=== PATIENT | male | born 1955 | race Caucasian/White ===

== ENCOUNTER → 2017-06-07 | Outpatient (CLI) | payer BC ==
[~2017-06-07] MED LIST: ASPI-999 PO; ATOR20TA66 PO; Allegra; CLOP75TA28 PO; CLOP75TA69 PO; FEXO-14 PO; FEXO180T84 PO; METO-351 PO; METO-395 PO; PANT40TA2 PO; REGADENOSON 0.4 MG/5 ML SYR (LEXISCAN) IV ONE; TRAM-42 PO
[2017-06-07] MEDS: CATHETER FLUSH 10 ML SYR IV PRN ×2 (11:20→12:22)
[2017-06-07 12:19] VITALS: BP 177/91
--- NOTE | 2017-06-08 16:55 | STRESS TEST ---
DATE OF SERVICE: 06/07/2017 RESTING AND POST REGADENOSON TECHNETIUM-99M TETROFOSMIN SPECT CT IMAGING ORDERING PHYSICIAN: Dr. Garner. CLINICAL DIAGNOSIS: Coronary artery disease. Baseline images were carried out after injection of 10.47 mCi of technetium-99m Tetrofosmin. This was followed by 0.4 mg regadenoson and 30 mCi of technetium-99m Tetrofosmin for stress imaging. The electrocardiogram showed sinus rhythm at baseline. It did not change significantly with the regadenoson infusion. The patient noted mild shortness of breath following regadenoson technetium, which resolved in a few minutes. Review of images at rest and following stress does not indicate any distinct perfusion defects consistent with significant myocardial ischemia or infarction. Gating could not be carried out for the study. TID is absent (1). CONCLUSIONS: 1. No evidence of significant myocardial ischemia or infarction on this study. 2. Gating could not be carried out on this study. Job ID: [id number] DocumentID: [id number] Dictated Date: 06/08/2017 15:22:13 Batch Plant Operator Date: 06/08/2017 16:54:40 Dictated By: JANET GARNER MD, MA, FACP, FACC, MTDD
== END ==
LOC: CARD 10:50
PROVIDERS: ATTEND Internal Medicine Cardiovascular Disease
DX: I25.10 Atherosclerotic heart disease of native coronary artery without angina pectoris (principal); I10 Essential (primary) hypertension; E66.9 Obesity, unspecified
CPT/HCPCS: 78452; 93017

== ENCOUNTER → 2018-01-25 | Outpatient (CLI) | payer BC ==
[~2018-01-25] MED LIST changes: -REGADENOSON 0.4 MG/5 ML SYR (LEXISCAN) IV ONE
== END ==
LOC: RAD 12:57
PROVIDERS: ATTEND Internal Medicine Cardiovascular Disease
DX: I25.10 Atherosclerotic heart disease of native coronary artery without angina pectoris (principal); I65.23 Occlusion and stenosis of bilateral carotid arteries; E66.9 Obesity, unspecified; I10 Essential (primary) hypertension; I70.211 Atherosclerosis of native arteries of extremities with intermittent claudication, right leg; G25.81 Restless legs syndrome
CPT/HCPCS: 93923

== ENCOUNTER 2018-03-22 19:36 | Outpatient (CLI) | payer BC | END 2018-03-23 05:41 | disposition home or self-care (01) | LOC: SLEEP 19:36 | PROVIDERS: ATTEND Nurse Practitioner Family | DX: G47.10 Hypersomnia, unspecified (principal); G47.61 Periodic limb movement disorder; I10 Essential (primary) hypertension | CPT/HCPCS: 95810 ==

== ENCOUNTER → 2019-12-26 | Outpatient (CLI) | payer BC ==
[~2019-12-26] VITALS: Ht 182 cm; Wt 114.0 kg
[~2019-12-26] MED LIST changes: -METO-395 PO; +MTP100TCR PO; +REGADENOSON 0.4 MG/5 ML SYR (LEXISCAN) IV ONE
[2019-12-26] MEDS: CATHETER FLUSH 10 ML SYR IV PRN ×2 (07:35→08:59)
[2019-12-26 08:54] VITALS: BP 161/86
--- NOTE | 2019-12-26 20:27 | STRESS TEST ---
DATE OF SERVICE: 12/26/2019 RESTING AND POST REGADENOSON TECHNETIUM-99M TETROFOSMIN SPECT CT IMAGING ORDERING PHYSICIAN: Vianey Lees APRN OTHER PHYSICIAN: Dr. Lee. CLINICAL DIAGNOSIS: Shortness of breath. Baseline images were carried out after injection of 10.45 mCi of technetium-99m Tetrofosmin. This was followed by 0.4 mg regadenoson and 30.3 mCi of technetium-99m Tetrofosmin for stress imaging. The electrocardiogram showed sinus rhythm at baseline. It did not change significantly with regadenoson infusion. The patient tolerated the procedure well. Review of images at rest and following stress does not indicate any perfusion defects consistent with significant myocardial ischemia or infarction. Gated images show normal global left ventricular systolic function with normal regional wall motion. Left ventricular ejection fraction is calculated to be 60%. Left ventricular end diastolic volume is 90 mL. TID is absent (1.03). CONCLUSIONS: 1. No evidence of any significant myocardial ischemia or infarction on this study. 2. Normal regional wall motion. 3. Normal global left ventricular systolic function with a calculated ejection fraction of 60%. Job ID: [id number] DocumentID: [id number] Dictated Date: 12/26/2019 13:48:38 Sexual Health Physician Date: 12/26/2019 20:26:33 Dictated By: JANET LEE MD, MA, FACP, FACC, MTDD
== END ==
LOC: CARD 07:30
PROVIDERS: ATTEND Nurse Practitioner Family
DX: I25.10 Atherosclerotic heart disease of native coronary artery without angina pectoris (principal); I65.23 Occlusion and stenosis of bilateral carotid arteries; I10 Essential (primary) hypertension; G47.33 Obstructive sleep apnea (adult) (pediatric)
CPT/HCPCS: 78452; 93017; A9502

== ENCOUNTER → 2019-12-28 | Outpatient (CLI) | payer BC ==
[~2019-12-28] MED LIST changes: -REGADENOSON 0.4 MG/5 ML SYR (LEXISCAN) IV ONE
== END ==
LOC: CARD 08:02
PROVIDERS: ATTEND Nurse Practitioner Family
DX: I25.10 Atherosclerotic heart disease of native coronary artery without angina pectoris (principal); I65.29 Occlusion and stenosis of unspecified carotid artery; I10 Essential (primary) hypertension; G47.33 Obstructive sleep apnea (adult) (pediatric)
CPT/HCPCS: 93306

== ENCOUNTER 2020-11-07 06:31 | Outpatient (CLI) | payer BC ==
[~2020-11-07] VITALS: Ht 183 cm; Wt 109.0 kg
== END 2020-11-11 14:21 ==
LOC: PREOP 06:31
PROVIDERS: ATTEND Internal Medicine
DX: Z01.818 Encounter for other preprocedural examination (principal)

== ENCOUNTER 2020-11-15 07:52 | Day surgery (SDC) | payer BC ==
--- NOTE | 2020-11-07 06:06 | HISTORY AND PHYSICAL ---
DATE OF SERVICE: COLONOSCOPY H AND P HISTORY OF PRESENT ILLNESS: The patient is a 65-year-old white male seen in the office for wellness evaluation on 10/31/2020. Positive family history for colon cancer, index case being a sibling diagnosed in the 40s or early 50s. It has been 5 and half years since his last colonoscopy. He has noted no bowel habit change. Denies bright red blood per rectum, except for some radicular sounding low back pain, has been doing well. PAST MEDICAL HISTORY: Significant for known coronary artery disease, status post right coronary artery stent placement in 2014. He has obstructive sleep apnea and hypertension as well as hyperlipidemia. He has had no chest pain. Denies orthopnea, PND or pedal edema. There have been no changes in family history. Most notable for a sister diagnosed with colon cancer in her late 40s. PHYSICAL EXAMINATION: GENERAL: Reveals a white male, appeared to be in no acute distress. VITAL SIGNS: Weight stable at 251.2 pounds. Blood pressure 140/70. HEENT: Unremarkable. Sclerae nonicteric. CHEST: Clear. CARDIOVASCULAR: Reveals a regular rate and rhythm without murmur, S3 or S4. ABDOMEN: Soft, supple without mass, organomegaly or tenderness. RECTAL: Deferred at the time of colonoscopy. EXTREMITIES: Reveal no cyanosis, clubbing or edema. SKIN: Evaluation did reveal a partially ulcerated lesion with pearly borders, dime size on the right thigh. ASSESSMENT AND PLAN: 1. Stable wellness evaluation. Did discussed the importance of try increase physical activity, portion control and weight loss. 2. The patient is being set up for a screening colonoscopy higher than average risk due to family history of colon cancer in a sister diagnosed in her late 40s. 3. Lesion consistent with either basal or squamous cell right thigh. We will have him return next Wednesday for excision. 4. Combination radicular as well as likely mechanical low back pain. The patient referred for formal physical therapy. We will see him back in 6 months. Job ID: [id number] DocumentID: [id number] Dictated Date: 10/31/2020 16:55:36 Debt And Budget Counselor Date: 10/31/2020 17:33:58 Dictated By: DIANA VELASQUEZ MD
[~2020-11-15] VITALS: Ht 183 cm; Wt 109.0 kg
[2020-11-15] VITALS (7 sets, daily range): BP systolic 148–169; BP diastolic 78–92
[2020-11-15] MEDS ORDERED: LACTATED RINGERS 1,000 ML IV STA (08:00)
[2020-11-15] MEDS ORDERED: LIDOCAINE JELLY 2% 6 ML SYRINGE MM PRN (08:00)
[2020-11-15] MEDS ORDERED: LACTATED RINGERS 1,000 ML IV ONE (08:07)
--- NOTE | 2020-11-15 08:39 | Pre-Op Note & Conscious Sedat ---
Pre-Operative Progress Note H&P Reviewed The H&P was reviewed, patient examined and no changes noted. Date H&P Reviewed: Nov 15, 2020 Time H&P Reviewed: 08:39 Conscious Sedation Pre-Proced ASA Score 2 For ASA 3 and 4: Consider anesthesia and medical clearance. Also, for patients with a history of failed moderate sedation consider anesthesia. Airway Lungs Heart ASA score ASA 1: a normal healthy patient ASA 2: a patient with a mild systemic disease (mid diabetes, controlled hypertension, obesity ASA 3: a patient with a severe systemic disease that limits activity (angina, COPD, prior Myocardial infarction) ASA 4: a patient with an incapacitating disease that is a constant threat to life (CHF, renal failure) ASA 5: a moribund patient not expected to survive 24 hrs. (ruptured aneurysm) ASA 6: a declared brain- patient whose organs are being harvested. For emergent operations, add the letter E after the classification Mallampati Classification Grade 3 Sedation Plan Analgesia, Amnesia, Plan communicated to team members, Discussed options with patient/fam, Discussed risks with patient/fam The patient is an appropriate candidate to undergo the planned procedure, sedation, and anesthesia. The patient immediately re-assessed prior to indication. DIANA VELASQUEZ MD Nov 15, 2020 08:39
[2020-11-15] MEDS ORDERED: MIDAZOLAM 2 MG/2 ML (VERSED) VIAL ONE (09:11)
[2020-11-15] MEDS ORDERED: PROPOFOL INJECTION 50 ML IV ONE (09:11)
--- NOTE | 2020-11-15 10:15 | Anesthesia-General Post-Op ---
MAC Patient Condition Mental Status/LOC: Same as Preop Cardiovascular: Satisfactory Nausea/Vomiting: Absent Respiratory: Satisfactory Pain: Controlled Complications: Absent Post Op Complications Complications None Follow Up Care/Instructions Patient Instructions None needed. Anesthesiology Discharge Order Discharge Order Patient is doing well, no complaints, stable vital signs, no apparent adverse anesthesia problems. No complications reported per nursing. TERRY BAPTISTE CRNA Nov 15, 2020 10:15
--- NOTE | 2020-11-15 16:33 | OPERATIVE REPORT ---
DATE OF SERVICE: COLONOSCOPY SUMMARY I am his primary care physician. INDICATION FOR THE PROCEDURE: Screening colonoscopy, family history for colon cancer. DESCRIPTION OF PROCEDURE: The patient was placed in the left lateral decubitus position. Prior to undergoing colonoscopy, digital rectal evaluation was performed. Anal sphincter tone was normal and the perianal reflexes intact. Prostate is mildly enlarged, anodular on digital inspection. No abnormalities were noted on inspection of anal canal or distal rectal vault. The colonoscope was then inserted into the rectum and under direct visualization advanced to cecum. The cecum was identified by identification of ileocecal valve and cecal strap. Photographic documentation was obtained. Careful inspection was made as colonoscope was withdrawn. The quality of prep was good. FINDINGS: No evidence for internal or external hemorrhoids. Present at the rectosigmoid junction was a diminutive hyperplastic-appearing polyp. It was biopsied and removed in its entirety via cold forceps. Several small sigmoid diverticulum were present without evidence for diverticulitis. No other sigmoid colonic abnormalities were appreciated. The descending colon was unremarkable. Present in the distal transverse colon was a 3 mm sessile polyp. It was biopsied and removed in its entirety with cold forceps with no significant blood loss. The remainder of the transverse colon was unremarkable. Present at the splenic flexure was another diminutive 3 mm polyp. It was biopsied and removed via cold forceps as well with minimal blood loss. The remainder of the transverse colon, hepatic flexure, ascending colon and cecum were unremarkable. ASSESSMENT: Three diminutive sessile polyps were removed today from the rectosigmoid junction. The splenic flexure and distal transverse colon with minimal blood loss. The patient was advised to abstain from aspirin and Plavix over the weekend and then resume. Mild diverticular disease confined to the sigmoid colon was present and digital evaluation of the prostate was compatible with mild benign prostatic hypertrophy. Considering family history will be advocating repeat screening colonoscopy in 5 years as long as there are no surprise on histopathology report. Job ID: [id number] DocumentID: [id number] Dictated Date: 11/15/2020 10:22:02 Diesel Engine Fitter Date: 11/15/2020 16:33:04 Dictated By: DIANA VELASQUEZ MD
== END 2020-11-15 10:25 | disposition home or self-care (01) ==
LOC: ENDO 07:52
PROVIDERS: ATTEND Internal Medicine
DX: Z12.11 Encounter for screening for malignant neoplasm of colon (principal); D12.3 Benign neoplasm of transverse colon; K57.30 Diverticulosis of large intestine without perforation or abscess without bleeding; N40.0 Benign prostatic hyperplasia without lower urinary tract symptoms; I10 Essential (primary) hypertension; I25.10 Atherosclerotic heart disease of native coronary artery without angina pectoris; G47.33 Obstructive sleep apnea (adult) (pediatric); E78.5 Hyperlipidemia, unspecified; L98.8 Other specified disorders of the skin and subcutaneous tissue; M54.5 Low back pain; Z80.0 Family history of malignant neoplasm of digestive organs; Z79.899 Other long term (current) drug therapy; Z79.82 Long term (current) use of aspirin; Z79.02 Long term (current) use of antithrombotics/antiplatelets; Z87.891 Personal history of nicotine dependence
CPT/HCPCS: 88305

== ENCOUNTER → 2021-07-29 | Outpatient (CLI) | payer BC | LOC: CARD 15:00 | PROVIDERS: ATTEND Nurse Practitioner Family | DX: R06.00 Dyspnea, unspecified (principal); R60.0 Localized edema | CPT/HCPCS: 93306 ==

== ENCOUNTER 2021-08-19 08:00 | Day surgery (SDC) | payer BC ==
[~2021-08-19] VITALS: Ht 182.9 cm; Wt 116.8 kg
[2021-08-19] VITALS (8 sets, daily range): BP systolic 113–164; BP diastolic 52–83
[2021-08-19 07:25] LABS: HEMATOCRIT 44 % (40-54); MEAN CORPUSCULAR HEMOGLOBIN 29 pg (25-34); MEAN CORPUSCULAR HGB CONC 32 g/dL (32-36); MEAN CORPUSCULAR VOLUME 91 fL (80-99); MEAN PLATELET VOLUME 10.1 fL (9.0-12.2); PLATELET COUNT 189 10^3/uL (130-400); WHITE BLOOD COUNT 6.8 10^3/uL (4.3-11.0)
[2021-08-19 07:35] LABS: PROTHROMBIN TIME PATIENT 13.8 SEC (12.2-14.7)
[2021-08-19 07:37] LABS: ALBUMIN 4.1 GM/DL (3.2-4.5); BILIRUBIN,TOTAL 0.7 MG/DL (0.1-1.0); CREATININE SERUM 1.09 MG/DL (0.60-1.30); TOTAL PROTEIN 7.7 GM/DL (6.4-8.2)
[~2021-08-19 08:00] MED LIST changes: +ATOR40TA70 PO; +CAND8TAB14 PO; +HEParin (CATH LAB) 2,000 ML IV ONE; +HYDR25TA4 PO; +LIDOCAINE 1% INJ 20 ML VIAL ONE; +MIDAZOLAM 5 MG/5 ML (VERSED) VIAL ONE; +NS IV 1000 ML 1,000 ML IV SCH; +NS IV 1000 ML 1,000 ML ONE; +fentaNYL INJ 100 MCG/2 ML AMP ONE
--- NOTE | 2021-08-19 09:45 | Cardiac Procedure Note-CS/ASA ---
Pre-Procedure Note Pre-Op Procedure Note H&P Reviewed The H&P was reviewed, patient examined and no changes noted. Date H&P Reviewed: Aug 19, 2021 Time H&P Reviewed: 08:50 Conscious Sedation Pre-Proced Time 08:50 ASA Score 3 For ASA 3 and 4: Consider anesthesia and medical clearance. Also, for patients with a history of failed moderate sedation consider anesthesia. Airway Lungs Heart ASA score ASA 1: a normal healthy patient ASA 2: a patient with a mild systemic disease (mid diabetes, controlled hypertension, obesity ASA 3: a patient with a severe systemic disease that limits activity (angina, COPD, prior Myocardial infarction) ASA 4: a patient with an incapacitating disease that is a constant threat to life (CHF, renal failure) ASA 5: a moribund patient not expected to survive 24 hrs. (ruptured aneurysm) ASA 6: a declared brain- patient whose organs are being harvested. For emergent operations, add the letter E after the classification Mallampati Classification Grade 2 Sedation Plan Analgesia, Amnesia, Plan communicated to team members, Discussed options with patient/fam, Discussed risks with patient/fam The patient is an appropriate candidate to undergo the planned procedure, sedation, and anesthesia. The patient immediately re-assessed prior to indication. JANET LEE MD FACP FAC [facility] Aug 19, 2021 09:45
--- NOTE | 2021-08-19 09:51 | Discharge Inst-Cardiology ---
Discharge Inst-Cardiac Discharge Medications Continued Medications: Aspirin (Aspirin) 81 Mg Tab.chew 81 MG PO DAILY, TAB Atorvastatin Calcium (Atorvastatin Calcium) 40 Mg Tablet 40 MG PO HS, TAB Candesartan Cilexetil (Candesartan Cilexetil) 8 Mg Tablet 8 MG PO DAILY, TAB Fexofenadine HCl (Mariela Allergy) 180 Mg Tablet 180 MG PO DAILY Hydrochlorothiazide (Hydrochlorothiazide) 25 Mg Tablet 25 MG PO DAILY, TAB Metoprolol Succinate (Metoprolol Succinate) 100 Mg Tab.er.24h 100 MG PO DAILY, TAB Pantoprazole Sodium (Protonix) 40 Mg Tablet.dr 40 MG PO DAILY, TAB JANET LEE MD [facility] Aug 19, 2021 09:51
--- NOTE | 2021-08-19 09:51 | Discharge Inst-Post CATH ---
Discharge Inst-CATH/EP Post Cardiac Cath/EP D/C Inst Follow Up/Plan F/u with Dr Garner in 2 weeks ACTIVITY * Go Home directly and rest. * Limit activity of the leg (or wrist if it was used) for 7 days including aerobics, swimming, jogging, bicycling, etc. * Restrict stair-climbing for 7 days if possible, if not, climb up with your no n-cath leg, then bring together on the same step. * Avoid lifting, pushing, pulling or excessive movement of the affected ext remity for 7 days. * Customary sexual activity may be resumed after 2 days-use caution not to use a position that strains or causes pain to the affected extremity. * No driving for 24 hours. * NO SMOKING. * Avoid straining for bowel movements for 7 days. * Gentle walking on level ground is allowed. * Returning to work will depend on the type of procedure and the results. Your doctor will discuss this with you. CALL YOUR DOCTOR FOR ANY OF THE FOLLOWING: *If bleeding from the puncture site occurs- Apply gentle pressure to site with clean cloth and call your doctor or EMS. * If a knot or lump forms under the skin, increases in size, or causes pain. * If bruising appears to be worsening or moving further down your leg instead of disappearing. * Temperature above 101 F. CARE OF YOUR GROIN INCISION; * Bruising or purple discoloration of the skin near the puncture site is common. * You may shower only, no bathtub bathing for 5 days. Be careful to avoid slipping as your leg may feel stiff. * If a closure device was used on your femoral artery, please see the attached guide regarding care of the device and your leg. * Leave dressing on FOR 24 hours. CARE OF YOUR WRIST INCISION; * Bruising or purple discoloration of the skin near the puncture site is common. * You may shower. * DO NOT submerge wrist. * Leave dressing on FOR 24 hours. JANET GARNER MD [facility] Aug 19, 2021 09:51
[2021-08-19] MEDS ORDERED: PATIENT MAY USE OWN MEDS, ALL PO SCH (10:00)
[2021-08-19] MEDS ORDERED: NS IV 1000 ML 1,000 ML IV SCH (10:00)
--- NOTE | 2021-08-19 13:09 | CARDIAC CATHETERIZATION ---
DATE OF SERVICE: 08/19/2021 CARDIAC CATHETERIZATION REPORT HISTORY OF PRESENT ILLNESS: The patient is a 66-year-old man with a known coronary artery disease, who has had a stenting of the right coronary and balloon angioplasty of the distal posterior descending branch of the right coronary in 2014. Lately, he has had recurrent symptoms that are suggestive of recurrent angina. Cardiac catheterization was carried out today after having obtained an informed consent. PROCEDURE IN DETAIL: He was brought to the cardiac catheterization laboratory in a fasting state. Right groin was prepared and draped in the usual sterile fashion. Lidocaine 1% was used for local anesthesia. Modified Seldinger technique was used to advance a 5-Andorran sheath in the right femoral artery. Angiography of the right femoral artery was carried out through the sheath, 5-Andorran JL4 catheter was used for left coronary angiography, 5-Andorran JR4 catheter was used for right coronary angiography, 5-Andorran pigtail catheter was used for left heart catheterization and left ventricular angiography. At the end of the procedure, Mynx was used to achieve hemostasis following sheath removal. He tolerated the procedure well. HEMODYNAMICS: Left ventricular end-diastolic pressure following coronary angiography was 18 mmHg. There was no significant pressure gradient on pullback across the aortic valve. Ascending aortic pressure was 127/73 with a mean of 98 mmHg. CORONARY ANGIOGRAPHY: Left main coronary artery is short and does not exhibit significant disease. Left anterior descending artery does not exhibit significant disease. Left circumflex artery has mild plaque. Right coronary artery had mild to moderate diffuse disease. There is a patent stent in its mid portion. The site of balloon angioplasty in the posterior descending branch is intact and does not exhibit significant disease. LEFT VENTRICULAR ANGIOGRAPHY: Left ventricular angiography was carried out in the right anterior oblique projection. Global left ventricular systolic function appears well preserved. Left ventricular ejection fraction approximately 50%. CONCLUSIONS: 1. Mild to moderate coronary artery disease. 2. Patent stent in the mid right coronary artery known to be Promus Premier 2.5 x 28 placed in 2015. Site of angioplasty in the posterior descending artery is intact and does not exhibit significant restenosis. 3. Mild elevation of left ventricular end-diastolic pressure (18 mmHg). 4. Well preserved global left ventricular systolic function with an ejection fraction approximately 50%. DISCUSSION AND RECOMMENDATIONS: Based on results of the study, it appears appropriate to continue a conservative approach. Risk factor modification has been reviewed. Outpatient followup is advised. Job ID: [id number] DocumentID: [id number] Dictated Date: 08/19/2021 09:44:02 Transit Coach Operator Date: 08/19/2021 13:08:49 Dictated By: JANET LEE MD, MA, FACP, FACC,
== END 2021-08-19 13:00 | disposition home or self-care (01) ==
LOC: CATH 08:00 → SDC 10:00 → CATH 13:00
PROVIDERS: ATTEND Internal Medicine Cardiovascular Disease
DX: I25.118 Atherosclerotic heart disease of native coronary artery with other forms of angina pectoris (principal); I10 Essential (primary) hypertension; I49.9 Cardiac arrhythmia, unspecified; I65.23 Occlusion and stenosis of bilateral carotid arteries; I49.3 Ventricular premature depolarization; E78.2 Mixed hyperlipidemia; G47.33 Obstructive sleep apnea (adult) (pediatric); Z87.891 Personal history of nicotine dependence; Z95.5 Presence of coronary angioplasty implant and graft; Z99.89 Dependence on other enabling machines and devices
CPT/HCPCS: 80053; 80061; 85027; 85610; 85730; 87081; 93005; 93458; C1760; C1894; 36415